=== PATIENT | female | born 1980 | race Caucasian/White ===

== ENCOUNTER 2017-03-22 19:26 | Emergency (ER) | payer MEDICAID ==
[2017-03-22 22:58] VITALS: BP 116/65
== END 2017-03-22 22:58 | disposition home or self-care (01) ==
LOC: ED 19:26
DX: O34.82 Maternal care for other abnormalities of pelvic organs, second trimester (principal); Z3A.24 24 weeks gestation of pregnancy
CPT/HCPCS: Q0092

== ENCOUNTER 2017-07-13 21:20 | Emergency (ER) | payer MEDICAID ==
[2017-07-13 22:14] LABS: BASOPHIL % 0.4 % (0-2); PLATELET COUNT 339 x10^3mcL (130-400)
[2017-07-13 22:16] LABS: RED CELL DISTRIBUTION WIDTH 14.6 % (11.5-14.5)
[2017-07-13 22:23] LABS: CALCIUM 8.1 mg/dL (8.5-10.1); CARBON DIOXIDE 23.7 mmol/L (21-32); CHLORIDE SERUM 109 mmol/L (98-107); CREATININE SERUM 0.9 mg/dL (0.6-1.0); GFR1 > 60 mL/min; GLUCOSE SERUM 94 mg/dL (74-106); POTASSIUM SERUM 3.1 mmol/L (3.5-5.1); SODIUM SERUM 139 mmol/L (136-145)
[2017-07-14 00:43] LABS: rbc morphology (normal/abnorm) ABNORMAL (NORMAL)
[2017-07-14 00:44] LABS: tear drop cell (dacryocyte) 1+
[2017-07-14 03:45] VITALS: BP 116/53
== END 2017-07-14 03:45 | disposition short-term general hospital (02) ==
LOC: ED 21:20
PROVIDERS: Emergency Medicine
DX: O72.2 Delayed and secondary postpartum hemorrhage (principal); J45.909 Unspecified asthma, uncomplicated; O90.81 Anemia of the puerperium; Z88.5 Allergy status to narcotic agent
CPT/HCPCS: J1885; J2210; J7030; Q0092

== ENCOUNTER 2019-07-23 03:14 | Emergency (ER) | payer SELFPAY ==
[~2019-07-23] VITALS: Ht 167.6 cm; Wt 78.5 kg
[2019-07-23 03:20] VITALS: BP 114/56; Ht 167.6 cm; Wt 78.5 kg
[2019-07-23 04:21] LABS: microscopic required? YES; urine erythrocyte 1+ (NEGATIVE)
== END 2019-07-23 04:07 | disposition home or self-care (01) ==
LOC: ED 03:14
PROVIDERS: Emergency Medicine
DX: N39.0 Urinary tract infection, site not specified (principal); Z88.5 Allergy status to narcotic agent; Z98.890 Other specified postprocedural states; Z86.2 Personal history of diseases of the blood and blood-forming organs and certain disorders involving the immune mechanism
CPT/HCPCS: J0696